=== PATIENT | female | born 1955 | race Hispanic/Latino ===

== ENCOUNTER 2024-02-10 17:23 | Emergency (ER) | payer MEDICARE, MEDICAID, OTHER, SELFPAY ==
[2024-02-10 18:22] VITALS: BP 170/76; PULSE 69; RESP 16; TEMP 37; O2SAT 98; BMI 37.8
[2024-02-10 19:57] VITALS: BP 187/79; PULSE 69; RESP 18; TEMP 36.6; O2SAT 98; BMI 37.8
[2024-02-10 20:03] VITALS: BP 174/74; PULSE 66
--- NOTE | 2024-02-10 20:54 | ED.EAR ---
HPI - Ear Problem General Chief complaint: Ear Stated complaint: ear ache/ringing Time Seen by Provider: 02/10/24 19:56 Source: patient and other Mode of arrival: Ambulatory History of Present Illness HPI Narrative: 68-year-old female with history of diabetes, hypertension, hyperlipidemia presents by private vehicle from home for ringing in her ear. History obtained with help of family at bedside as patient was [place]-speaking only. Patient states that for the last 2 months she has had persistent, severe ringing in her ears that has been unable to be controlled. She saw her primary care physician who referred her to ENT, however the follow up appointment is not until April and patient was unable to sleep due to the severity of her tinnitus. Related Data Previous Rx's Medication Instructions Recorded clonazepam 1 mg tablet 1 - 2 mg (1 - 2 x 1 mg) PO BEDTIME 02/10/24 #10 tabs lisinopril 20 mg tablet 20 mg PO DAILY #30 tabs 02/10/24 Review of Systems Review of Systems Narrative: See HPI Exam Initial Vital Signs Initial Vital Signs: Vital Signs Temperature 98.6 F 02/10/24 18:22 Pulse Rate 69 02/10/24 18:22 Respiratory Rate 16 02/10/24 18:22 Blood Pressure 170/76 H 02/10/24 18:22 Pulse Oximetry 98 02/10/24 18:22 Oxygen Delivery Method Room Air 02/10/24 18:22 Const: Awake, alert, no acute distress, nontoxic appearing HEENT: TM normal bilaterally, external ear normal bilaterally Skin: Warm, Dry, intact, no rashes Neuro: AO x3, CN II-XII grossly intact, moves all extremities Course Orders Ordered: Discontinued Medications Diazepam (Diazepam 5 Mg Tablet) 5 mg PO NOW ONE Stop: 02/10/24 20:56 Last Admin: 02/10/24 21:08 Dose: 5 mg Documented By: SIVA Vital Signs Vital signs: Vital Signs - 8 hr 02/10/24 18:22 02/10/24 19:57 02/10/24 20:03 Temperature 98.6 F 97.8 F Pulse Rate 69 69 66 Respiratory Rate 16 18 Blood Pressure 170/76 H 187/79 H 174/74 H Pulse Oximetry 98 98 Oxygen Delivery Method Room Air Room Air 02/10/24 22:26 Temperature Pulse Rate 90 Respiratory Rate 18 Blood Pressure 142/82 H Pulse Oximetry 98 Oxygen Delivery Method Room Air Medical Decision Making MDM Narrative Medical decision making narrative: Several months of persistent tinnitus. No obvious physical exam abnormalities. Call placed to Dr. Yi of on-call ENT, who stated that tinnitus is managed usually with anxiety medications as well as referral to therapy. Patient was given a dose of Valium in the emergency department. Family also states that symptoms seem to worsen after changing patient's lisinopril to irbesartan. They think that the medication changes may have worsened her symptoms and they would like to go back to lisinopril. Patient's medical records shows that she was on Ambien and trazodone. She was counseled to stop taking irbesartan and to switch to lisinopril, and clonazepam will be sent to the pharmacy. She was advised to stop at least 1 of trazodone and/or Ambien to avoid polypharmacy. Close PCP follow up advised. She was also advised to keep her ENT appointment in April as scheduled Discharge Plan Departure Patient Disposition: Home Clinical Impression: Bilateral tinnitus Instructions: DI for Tinnitus Activity Restrictions/Additional Instructions: AFTER OUR DISCUSSION TODAY I RECOMMEND THE FOLLOWING CHANGES STOP TAKING IRBESARTAN START TAKING LISINOPRIL 20 MG DAILY EITHER TRAZODONE OR ZOLPIDEM/AMBIEN START TAKING CLONAZEPAM BEFORE BED. TALK TO YOUR PRIMARY CARE DOCTOR ABOUT STARTING THERAPY FOR YOUR TINNITUS Prescriptions: New lisinopril 20 mg tablet 20 mg PO DAILY Qty: 30 0RF clonazepam 1 mg tablet 1 - 2 mg PO BEDTIME Qty: 10 0RF Rx Instructions: administer 30 minutes before bedtime Referrals: Miscellaneous,Doctor, MD [Primary Care Provider] - Stand Alone Forms: Patient Portal/API
[2024-02-10] MEDS: diazePAM 5 MG TABLET PO (21:08)
[2024-02-10 22:26] VITALS: BP 142/82; PULSE 90; RESP 18; O2SAT 98
== END 2024-02-10 22:36 | disposition home or self-care (01) ==
PROVIDERS: Emergency Provider Emergency Medicine
DX: H93.13 Tinnitus, bilateral (principal)
CPT/HCPCS: 99283

== ENCOUNTER → 2024-03-09 07:18 | Outpatient (CLI) | payer OTHER, MEDICAID, SELFPAY ==
[2024-03-09 08:04] LABS: Add Manual Diff / Slide Review NO; Basophils Absolute Auto 100 /uL (0-100); Basophils Percent Auto 0.6 % (0-2); Eosinophils Absolute Auto 100 /uL (0-450); Eosinophils Percent Auto 1.6 % (2-4); Hematocrit 37.8 % (36-46); Hemoglobin 12.8 g/dL (12.0-16.0); Lymphocytes Absolute Auto 2100 /uL (1100-4500); Lymphocytes Percent Auto 25.2 % (25-40); Mean Corpuscular HGB Conc 33.9 % (30-36); Mean Corpuscular Hemoglobin 30.1 PG (26-34); Mean Corpuscular Volume 88.9 fL (80-100); Monocytes Absolute Auto 500 /uL (0-900); Monocytes Percent Auto 5.5 % (3-14); Neutrophils Absolute Auto 5600 /uL (1500-7000); Neutrophils Percent Auto 67.1 % (50-75); Platelet Count 229 X10^3/uL (150-400); Red Blood Cell Count 4.26 X10^6/uL (4.0-5.2); Red Cell Distribution Width 13.9 % (11.6-14.8); White Blood Cell Count 8.4 X10^3/uL (4.5-11.0)
[2024-03-09 08:14] LABS: Hemoglobin A1C% w Est Avg Glu 7.6 % (4.0-6.0)
[2024-03-09 08:26] LABS: Alanine Aminotransferase 39 IU/L (<35); Albumin 3.9 g/dL (3.5-5.0); Albumin Globulin Ratio 1.7 (1.0-2.8); Alkaline Phosphatase 65 U/L (38-126); Aspartate Aminotransferase 41 IU/L (14-36); BUN Creatinine Ratio 25.4 (6-22); Bilirubin Total 0.7 mg/dL (0.2-1.3); Blood Urea Nitrogen 17 mg/dL (7-17); Calcium 8.9 mg/dL (8.4-10.2); Carbon Dioxide 29 mmol/L (22-32); Chloride 104 mmol/L (98-107); Cholesterol 122 mg/dL (140-199); Estimated Glomerular Filt Rate > 60 mL/min (>60); Globulin 2.3 g/dL (1.7-4.1); Glucose 166 mg/dL (80-110); HDL Cholesterol 36 mg/dL (40-60); HEMOLYSIS < 15 (0-50); LDL Cholesterol Calculated 50 mg/dL (<100); Potassium 4.6 mmol/L (3.4-5.1); Sodium 140 mmol/L (137-145); Total Protein 6.2 g/dL (6.3-8.2); Triglycerides 178 mg/dL (35-150)
[2024-03-09 08:33] LABS: High Sensitivity CRP - Cardiac 5.6 mg/L (1.0-3.0)
== END ==
PROVIDERS: PCP Family Medicine; Referring Provider Family Medicine; Visit Provider Family Medicine
DX: I10 Essential (primary) hypertension (principal); E11.9 Type 2 diabetes mellitus without complications; E78.5 Hyperlipidemia, unspecified
CPT/HCPCS: 36415; 80053; 80061; 83036; 85025; 86140

== ENCOUNTER → 2024-07-03 09:38 | Outpatient (CLI) | payer OTHER, MEDICAID, SELFPAY ==
[2024-07-03 10:59] LABS: Hemoglobin A1C% w Est Avg Glu 6.7 % (4.0-6.0)
[2024-07-03 11:09] LABS: Alanine Aminotransferase 35 IU/L (<35); Albumin 3.9 g/dL (3.5-5.0); Albumin Globulin Ratio 1.7 (1.0-2.8); Alkaline Phosphatase 63 U/L (38-126); Aspartate Aminotransferase 39 IU/L (14-36); BUN Creatinine Ratio 20.3 (6-22); Bilirubin Total 0.6 mg/dL (0.2-1.3); Blood Urea Nitrogen 12 mg/dL (7-17); Calcium 9.4 mg/dL (8.4-10.2); Carbon Dioxide 30 mmol/L (22-32); Chloride 103 mmol/L (98-107); Cholesterol 118 mg/dL (140-199); Estimated Glomerular Filt Rate > 60 mL/min (>60); Globulin 2.3 g/dL (1.7-4.1); Glucose 147 mg/dL (80-110); HDL Cholesterol 38 mg/dL (40-60); HEMOLYSIS < 15 (0-50); LDL Cholesterol Calculated 58 mg/dL (<100); Potassium 4.7 mmol/L (3.4-5.1); Sodium 139 mmol/L (137-145); Total Protein 6.2 g/dL (6.3-8.2); Triglycerides 108 mg/dL (35-150)
[2024-07-03 11:15] LABS: High Sensitivity CRP - Cardiac 5.3 mg/L (1.0-3.0)
== END ==
PROVIDERS: PCP Family Medicine; Referring Provider Family Medicine; Visit Provider Family Medicine
DX: E11.49 Type 2 diabetes mellitus with other diabetic neurological complication (principal); I10 Essential (primary) hypertension; E11.40 Type 2 diabetes mellitus with diabetic neuropathy, unspecified; D64.9 Anemia, unspecified
CPT/HCPCS: 36415; 80053; 80061; 83036; 86140